=== PATIENT | female | born 1995 | race Two or more races ===

== ENCOUNTER 2016-11-18 20:20 | Inpatient (IN) | payer SELFPAY ==
[2016-11-18] MEDS ORDERED: Sodium Chloride 0.9% 10 ML Syringe FLUSH PRN (23:34)
[2016-11-18] MEDS ORDERED: Oxytocin/Lactated Ringers 10 UNIT/1,000 ML BAG IV SCH (23:45)
[2016-11-19] MEDS: Misoprostol 25 MCG (1/4 of 100 MCG) Tab VAG SCH ×3 (00:06→23:18)
[2016-11-19] MEDS: Lactated Ringers 1,000 ML IV SCH ×6 (04:21→23:16)
[2016-11-19] MEDS ORDERED: fentaNYL 100 MCG/2 ML SDV EPIDUR PRN (07:04)
[2016-11-19] MEDS ORDERED: Ondansetron 4 MG/2 ML SDV IVPUSH PRN (07:04)
[2016-11-19] MEDS ORDERED: ePHEDrine 50 MG/ML SDV IVPUSH PRN (07:04)
--- NOTE | 2016-11-19 07:06 | PCM.PREANE ---
Preanesthetic Assessment - Anesthesia/Transfusion/Family Hx Anesthesia History: No Prior Anesthesia Family History of Anesthesia Reaction: No Transfusion History: No Prior Transfusion(s) Intubation History: Unknown - Review of Systems General: No Symptoms Pulmonary: No Symptoms Cardiovascular: No Symptoms Gastrointestinal: Constipation Neurological: No Symptoms Other: Reports: Easy Bruising - Physical Assessment NPO Status Date: 11/18/16 NPO Status Time: 14:00 Pulse: 82 O2 Sat by Pulse Oximetry: 100 Respiratory Rate: 16 Blood Pressure: 138/86 Temperature: 37 C Vital Signs: Last Vital Signs Temp 37.0 C 11/19/16 00:29 Pulse 82 11/19/16 00:29 Resp 16 11/19/16 00:29 BP 138/86 11/19/16 00:29 Pulse Ox 100 11/19/16 00:29 Height: 1.55 m Weight: 71.486 kg ASA Class: 2 Mental Status: Alert & Oriented x3 Airway Class: Mallampati = 2 Dentition: Reports: Normal Dentition, Caries Thyro-Mental Finger Breadths: 3 Mouth Opening Finger Breadths: 3 ROM/Head Extension: Full Lungs: Clear to Auscultation, Normal Respiratory Effort Cardiovascular: Regular Rate, Regular Rhythm - Lab Values: Laboratory Last Values WBC 13.02 K/mm3 (3.98-10.04) H 11/18/16 23:58 RBC 3.73 M/mm3 (3.98-5.22) L 11/18/16 23:58 Hgb 11.2 gm/L (11.2-15.7) 11/18/16 23:58 Hct 32.9 % (34.1-44.9) L 11/18/16 23:58 MCV 88.2 fl (79.4-94.8) 11/18/16 23:58 MCH 30.0 pg (25.6-32.2) 11/18/16 23:58 MCHC 34.0 g/dl (32.2-35.5) 11/18/16 23:58 RDW Std Deviation 45.3 fL (36.4-46.3) 11/18/16 23:58 Plt Count 238 K/mm3 (182-369) 11/18/16 23:58 MPV 10.4 fl (9.4-12.3) 11/18/16 23:58 Neut % (Auto) 75.0 % (34.0-71.1) H 11/18/16 23:58 Lymph % (Auto) 15.7 % (19.3-51.7) L 11/18/16 23:58 [place] % (Auto) 8.6 % (4.7-12.5) 11/18/16 23:58 Eos % (Auto) 0.4 (0.7-5.8) L 11/18/16 23:58 Baso % (Auto) 0.1 % (0.1-1.2) 11/18/16 23:58 Neut # (Auto) 9.77 K/mm3 (1.56-6.13) H 11/18/16 23:58 Lymph # (Auto) 2.04 K/mm3 (1.18-3.74) 11/18/16 23:58 [place] # (Auto) 1.12 K/mm3 (0.24-0.36) H 11/18/16 23:58 Eos # (Auto) 0.05 K/mm3 (0.04-0.36) 11/18/16 23:58 Baso # (Auto) 0.01 K/mm3 (0.01-0.08) 11/18/16 23:58 Blood Type B NEGATIVE 11/18/16 23:58 Gel Antibody Screen Negative 11/18/16 23:58 Above lab values reviewed and noted. 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 Below) Other OB/BYN History: ASCUS on PAP smear, positive HPV - Infectious Disease History Infectious Disease History: Reports: Chicken Pox - Past Surgical History Musculoskeletal Surgical History: Reports: Other (See Below) Other Musculoskeletal Surgeries/Procedures:: right arm fracture age 5 - SUBSTANCE USE Smoking Status *Q: Never Smoker Recreational Drug Use History: No - CURRENT (IN HOUSE) MEDS Current Meds: Current Medications Lactated Ringer's (Ringers, Lactated) 1,000 mls @ 100 mls/hr IV ASDIRECTED GOLDEN Last Admin: 11/19/16 06:05 Dose: 100 mls/hr Oxytocin/Lactated Ringer's (Pitocin In Lr 10 Units/1,000 Ml) 10 unit in 1,000 mls @ 500 mls/hr IV .CONTINUOUS GOLDEN Oxytocin/Lactated Ringer's (Pitocin In Lr 10 Units/1,000 Ml) 10 unit in 1,000 mls @ 12 mls/hr IV TITRATE GOLDEN; 2 MUNITS/MIN PRN Reason: Protocol Misoprostol (Cytotec) 25 mcg VAG Q3HR GOLDEN Stop: 11/19/16 07:30 Last Admin: 11/19/16 04:03 Dose: 25 mcg Sodium Chloride (Saline Flush) 10 ml FLUSH ASDIRECTED PRN PRN Reason: Keep Vein Open
[2016-11-19] MEDS ORDERED: Bupivacaine/fentaNYL/NS 100 ML Bag EPIDUR SCH (07:15)
--- NOTE | 2016-11-19 08:06 | PCM.LDHP ---
L&D History of Present Illness - General Date of Service: 11/19/16 Admit Problem/Dx: Patient Status Order with Admit Dx/Problem 11/18/16 23:34 Patient Status [ADT] Routine Admission Diagnosis/Problem Admission Diagnosis/Problem Source of Information: Patient History Limitations: Reports: No Limitations - History of Present Illness Introduction:: A 1-year-old CARLIE 11/14/16 and estimated gestational age today of 40 weeks and 5 days presented to labor and delivery late last evening for Cytotec placement she has received 2 Cytotec placements in the vagina and cervix this morning is 2 cm 50% effaced cephalic presentation -1 station amniotomy performed at 0 756 clear fluid will begin Pitocin 1 hour if no significant contractions blood type B negative hemoglobin hematocrit 05/13/1710.5 and 33.1 history of ASCUS Pap with HPV high risk positive we'll need colposcopy at 12 weeks rubella immune serology nonreactive urine culture mixed leon hepatitis B surface antigen and HIV negative Chlamydia negative and GC negative on 08/22/16 hemoglobin hematocrit 10.1 and 30.1 and platelets 345,001 hour OB glucose screen 120 given RhoGAM and GBS negative. 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) Other OB/BYN History: ASCUS on PAP smear, positive HPV - Infectious Disease History Infectious Disease History: Reports: Chicken Pox - Past Surgical History Musculoskeletal Surgical History: Reports: Other (See Below) Other Musculoskeletal Surgeries/Procedures:: right arm fracture age 5 Social & Family History - Tobacco Use Smoking Status *Q: Never Smoker - Caffeine Use Caffeine Use: Reports: Coffee - Recreational Drug Use Recreational Drug Use: No H&P Review of Systems - Review of Systems: Review Of Systems: See Below General: Reports: No Symptoms HEENT: Reports: No Symptoms Pulmonary: Reports: No Symptoms Cardiovascular: Reports: No Symptoms Gastrointestinal: Reports: No Symptoms Genitourinary: Reports: No Symptoms Musculoskeletal: Reports: No Symptoms Skin: Reports: No Symptoms Psychiatric: Reports: No Symptoms Neurological: Reports: No Symptoms Hematologic/Lymphatic: Reports: No Symptoms Immunologic: Reports: No Symptoms L&D Exam - Exam Exam: See Below - Vital Signs Vital Signs: Last Vital Signs Temp 98.6 F 11/19/16 07:06 Pulse 82 11/19/16 07:06 Resp 16 11/19/16 07:06 BP 138/86 11/19/16 07:06 Pulse Ox 100 11/19/16 07:06 Weight: 157 lb 9.6 oz - OB Specific Fundal Height In cm: 38 Contraction Duration (sec): 60 Contraction Frequency (min): 3 Contraction Intensity: Mild to Moderate Movement: Active Heart Tones: Present Heart Tones per Min: 135 Heart Rate (FHR) Variability: Moderate (6-25 bmp) Presentation: Vertex - Young Score Young Score Cervix Position: Posterior Young Score Consistency: Soft Young Score Effacement: 31-50% Young Score Dilation: 3-4 cm Young Score Infant's Station: -1 ,0 Young Score Total: 7 - Exam General: Alert, Oriented HEENT: Conjunctiva Clear, Mucosa Moist & [place] Neck: Supple, Trachea Midline Lungs: Clear to Auscultation, Normal Respiratory Effort Cardiovascular: Regular Rate, Regular Rhythm GI/Abdominal Exam: Normal Bowel Sounds, Soft, Non-Tender, No Organomegaly, No Distention, No Abnormal Bruit, No Mass, Pelvis Stable Rectal Exam: Normal Exam, Normal Rectal Tone Genitourinary: Normal external exam, Normal bimanual exam, Normal speculum exam Back Exam: Normal Inspection, Full Range of Motion Extremities: Normal Inspection, Normal Range of Motion, Non-Tender, No Pedal Edema, Normal Capillary Refill Skin: Warm, Dry, Intact Psychiatric: Alert, Normal Affect, Normal Mood - Patient Data Lab Results Last 24 hrs: Laboratory Results - last 24 hr 11/18/16 11/18/16 Range/Units 23:58 23:58 WBC 13.02 H (3.98-10.04) K/mm3 RBC 3.73 L (3.98-5.22) M/mm3 Hgb 11.2 (11.2-15.7) gm/L Hct 32.9 L (34.1-44.9) % MCV 88.2 (79.4-94.8) fl MCH 30.0 (25.6-32.2) pg MCHC 34.0 (32.2-35.5) g/dl RDW Std Deviation 45.3 (36.4-46.3) fL Plt Count 238 (182-369) K/mm3 MPV 10.4 (9.4-12.3) fl Neut % (Auto) 75.0 H (34.0-71.1) % Lymph % (Auto) 15.7 L (19.3-51.7) % [place] % (Auto) 8.6 (4.7-12.5) % Eos % (Auto) 0.4 L (0.7-5.8) Baso % (Auto) 0.1 (0.1-1.2) % Neut # (Auto) 9.77 H (1.56-6.13) K/mm3 Lymph # (Auto) 2.04 (1.18-3.74) K/mm3 [place] # (Auto) 1.12 H (0.24-0.36) K/mm3 Eos # (Auto) 0.05 (0.04-0.36) K/mm3 Baso # (Auto) 0.01 (0.01-0.08) K/mm3 Blood Type B NEGATIVE Gel Antibody Screen Negative Result Diagrams: 11/18/16 23:58 - Problem List (1) 40 weeks gestation of SNOMED Code(s): 42388218 ICD Code: Z3A.40 - 40 WEEKS GESTATION OF Status: Acute Current Visit: Yes Problem List Initiated/Reviewed/Updated: No Orders Last 24hrs: Active Orders 24 hr Category Date Time Status Patient Status [ADT] Routine ADT 11/18/16 23:34 Active Activity as Tolerated [RC] PFP Care 11/18/16 23:34 Active Communication Order [RC] ASDIRECTED Care 11/18/16 23:34 Active Heart Tones [RC] ASDIRECTED Care 11/18/16 23:35 Active Notify Provider [RC] ASDIRECTED Care 11/19/16 07:04 Active Notify Provider [RC] PFP Care 11/18/16 23:34 Active Notify Provider [RC] PRN Care 11/18/16 23:34 Active Oxygen Therapy [RC] ASDIRECTED Care 11/19/16 07:03 Active Peripheral IV Care [RC] . DIRECTED Care 11/18/16 23:35 Active Pulse Oximetry [RC] ASDIRECTED Care 11/19/16 07:04 Active Vital Signs [RC] PER UNIT ROUTINE Care 11/18/16 23:34 Active Clear Liquid Diet [DIET] Diet 11/19/16 Breakfast Active Bupivacaine/fentaNYL/NS [fentaNYL/Bupivacaine/NS 2 MCG- Med 11/19/16 07:15 Active 0.125% 100 ML] 100 ml EPIDUR ASDIRECTED Lactated Ringers [Ringers, Lactated] 1,000 ml Med 11/18/16 23:45 Active IV ASDIRECTED Ondansetron [Zofran] Med 11/19/16 07:04 Active 4 mg IVPUSH ONETIME PRN Oxytocin/Lactated Ringers [Pitocin in LR 10 Units/1,000 Med 11/18/16 23:45 Active ML] 10 unit in 1,000 ml IV .CONTINUOUS Oxytocin/Lactated Ringers [Pitocin in LR 10 Units/1,000 Med 11/19/16 08:30 Active ML] 10 unit in 1,000 ml IV TITRATE Sodium Chloride 0.9% [Saline Flush] Med 11/18/16 23:34 Active 10 ml FLUSH ASDIRECTED PRN ePHEDrine [ePHEDrine Sulfate] Med 11/19/16 07:04 Active 5 mg IVPUSH ASDIRECTED PRN fentaNYL [Sublimaze] Med 11/19/16 07:04 Active 100 mcg EPIDUR Q3H PRN Electronic Heart Tones Ext w TOCO [WOMSER] Oth 11/18/16 23:34 Ordered Routine Electronic Heart Tones Internal [WOMSER] Per Unit Oth 11/18/16 23:34 Ordered Routine Peripheral IV Insertion Adult [OM.PC] Routine Oth 11/18/16 23:34 Ordered Resuscitation Status Routine Resus Stat 11/18/16 23:34 Ordered Medication Orders Ephedrine Sulfate (Ephedrine Sulfate) 5 mg IVPUSH ASDIRECTED PRN PRN Reason: Hypotension Fentanyl (Sublimaze) 100 mcg EPIDUR Q3H PRN PRN Reason: Pain Fentanyl/Bupivacaine HCl (Fentanyl/Bupivacaine/Ns 2 Mcg-0.125% 100 Ml) 100 ml EPIDUR ASDIRECTED GOLDEN Lactated Ringer's (Ringers, Lactated) 1,000 mls @ 100 mls/hr IV ASDIRECTED GOLDEN Last Admin: 11/19/16 06:05 Dose: 100 mls/hr Infusion: 11/19/16 06:05 Dose: 100 mls/hr Admin: 11/19/16 04:21 Dose: 100 mls/hr Oxytocin/Lactated Ringer's (Pitocin In Lr 10 Units/1,000 Ml) 10 unit in 1,000 mls @ 500 mls/hr IV .CONTINUOUS GOLDEN Oxytocin/Lactated Ringer's (Pitocin In Lr 10 Units/1,000 Ml) 10 unit in 1,000 mls @ 12 mls/hr IV TITRATE GOLDEN; 2 MUNITS/MIN PRN Reason: Protocol Ondansetron HCl (Zofran) 4 mg IVPUSH ONETIME PRN PRN Reason: Nausea/Vomiting Sodium Chloride (Saline Flush) 10 ml FLUSH ASDIRECTED PRN PRN Reason: Keep Vein Open Assessment/Plan Comment:: Plan delivery
[2016-11-19] MEDS ORDERED: Oxytocin/Lactated Ringers 10 UNIT/1,000 ML BAG IV SCH (08:30)
[2016-11-19] MEDS ORDERED: Lidocaine 1% 50 ML MDV ONE (11:04)
[2016-11-19] MEDS: Nalbuphine 20 MG/1 ML Amp IVPUSH ONE ×2 (12:45→23:19)
--- NOTE | 2016-11-19 13:58 | PCM.SN ---
- Free Text/Narrative Note: At 1322 cervix 5-6 cm, 90% effaces, soft, posterior, vtx-1 to 0. Cat I FHR. Discussed possible epidural. Amniotic Fluid Clear.
--- NOTE | 2016-11-19 16:51 | PCM.SN ---
- Free Text/Narrative Note: Cervix 8 cm, 100%, soft, anterior, vertex 0 station, Cat I FHR. Oxytocing at 8 miu/ml
--- NOTE | 2016-11-19 17:53 | PCM.SN ---
- Free Text/Narrative Note: Pelvic examination reveals anterior lip +2 station category 1 heart rates at 10 M international units per minute oxytocin dilute solution containing anticipation for vaginal delivery discussion with family concerning OP presentation and prolonged pushing possible section but at present time anticipate vaginal delivery
[2016-11-19] MEDS ORDERED: Acetaminophen Soln 650 MG/20.3 ML UD Cup PO ONE (18:41)
--- NOTE | 2016-11-19 18:41 | PCM.SN ---
- Free Text/Narrative Note: Cervix complete, to begin pushing. Temp increased to 100.4, blood cultures ordered, also borderline tachycardia. Accelerations and Cat I heart rate.
--- NOTE | 2016-11-19 20:45 | PCM.DEL ---
L & D Note - General Info Date of Service: 11/19/16 Mother's Due Date: 11/14/16 - Delivery Note Labor: Augmented by ARM, Augmented by Oxytocin Cervical Ripening Method: Misoprostil Delivery Outcome: Livebirth (Male liveborn 25/08/89 grams 7 pounds 11.1 ounces FREDY Friday11/19/16 at 2020 hrs. Apgars 8/9) Infant Delivery Method: Spontaneous Vaginal Delivery Infant Delivery Mode: Spontaneous Presentation: Left Occiput Anterior (FREDY) Nuchal Cord: None Prep: Povidone-Iodine (Betadine Anesthesia Type: Epidural (Good relief no pain with laceration repair) Amniotic Fluid Description: Clear Episiotomy Type: None Laceration: 2nd Degree Suture type: Other (Monocryl) Suture size: 3-0 Placenta: Intact, Spontaneous (Spontaneous delivery at 2023 hrs. on 11/19 eccentric cord insertion 3 vessel cord) Cord: 3 Vessels Estimated Blood Loss: 250 Resuscitation Needed: No : Suctioned, Bulb Syringe, Stimulated, Warmed, [place] Used, Warmer Used Provider: Abhay Key Score 1 min: 8 Score 5 min: 9 - Patient Data Vitals - Most Recent: Last Vital Signs Temp 100.8 F H 11/19/16 18:47 Pulse 82 11/19/16 10:32 Resp 16 11/19/16 10:32 BP 138/86 11/19/16 10:32 Pulse Ox 100 11/19/16 10:32 Weight - Most Recent: 157 lb 9.6 oz I&O - Last 24 Hours: Intake & Output 11/19/16 11/19/16 11/19/16 06:59 14:59 22:59 Intake Total 1000 360 800 Balance 1000 360 800 Lab Results Last 24 Hours: Laboratory Results - last 24 hr 11/18/16 11/18/16 Range/Units 23:58 23:58 WBC 13.02 H (3.98-10.04) K/mm3 RBC 3.73 L (3.98-5.22) M/mm3 Hgb 11.2 (11.2-15.7) gm/L Hct 32.9 L (34.1-44.9) % MCV 88.2 (79.4-94.8) fl MCH 30.0 (25.6-32.2) pg MCHC 34.0 (32.2-35.5) g/dl RDW Std Deviation 45.3 (36.4-46.3) fL Plt Count 238 (182-369) K/mm3 MPV 10.4 (9.4-12.3) fl Neut % (Auto) 75.0 H (34.0-71.1) % Lymph % (Auto) 15.7 L (19.3-51.7) % [place] % (Auto) 8.6 (4.7-12.5) % Eos % (Auto) 0.4 L (0.7-5.8) Baso % (Auto) 0.1 (0.1-1.2) % Neut # (Auto) 9.77 H (1.56-6.13) K/mm3 Lymph # (Auto) 2.04 (1.18-3.74) K/mm3 [place] # (Auto) 1.12 H (0.24-0.36) K/mm3 Eos # (Auto) 0.05 (0.04-0.36) K/mm3 Baso # (Auto) 0.01 (0.01-0.08) K/mm3 Blood Type B NEGATIVE Gel Antibody Screen Negative Med Orders - Current: Current Medications Ephedrine Sulfate (Ephedrine Sulfate) 5 mg IVPUSH ASDIRECTED PRN PRN Reason: Hypotension Fentanyl (Sublimaze) 100 mcg EPIDUR Q3H PRN PRN Reason: Pain Last Admin: 11/19/16 14:08 Dose: 100 mcg Fentanyl/Bupivacaine HCl (Fentanyl/Bupivacaine/Ns 2 Mcg-0.125% 100 Ml) 100 ml EPIDUR ASDIRECTED GOLDEN Last Admin: 11/19/16 14:08 Dose: 100 ml Lactated Ringer's (Ringers, Lactated) 1,000 mls @ 100 mls/hr IV ASDIRECTED GOLDEN Last Admin: 11/19/16 18:40 Dose: 100 mls/hr Oxytocin/Lactated Ringer's (Pitocin In Lr 10 Units/1,000 Ml) 10 unit in 1,000 mls @ 500 mls/hr IV .CONTINUOUS GOLDEN Oxytocin/Lactated Ringer's (Pitocin In Lr 10 Units/1,000 Ml) 10 unit in 1,000 mls @ 12 mls/hr IV TITRATE GOLDEN; 2 MUNITS/MIN PRN Reason: Protocol Last Titration: 11/19/16 17:38 Dose: 10 munits/min, 60 mls/hr Ondansetron HCl (Zofran) 4 mg IVPUSH ONETIME PRN PRN Reason: Nausea/Vomiting Sodium Chloride (Saline Flush) 10 ml FLUSH ASDIRECTED PRN PRN Reason: Keep Vein Open Discontinued Medications Acetaminophen (Tylenol) 650 mg PO ONETIME ONE Stop: 11/19/16 18:42 Last Admin: 11/19/16 18:47 Dose: 650 mg Lidocaine HCl (Xylocaine 1%) Confirm Administered Dose 50 ml .ROUTE .STK-MED ONE Stop: 11/19/16 11:05 Misoprostol (Cytotec) 25 mcg VAG Q3HR GOLDEN Stop: 11/19/16 07:30 Last Admin: 11/19/16 04:03 Dose: 25 mcg Nalbuphine HCl (Nubain) 10 mg IVPUSH ONETIME ONE Stop: 11/19/16 12:39 - Problem List & Annotations (1) 40 weeks gestation of SNOMED Code(s): 98001336 Code(s): Z3A.40 - 40 WEEKS GESTATION OF Status: Acute Current Visit: Yes (2) Second degree laceration of perineum, delivered, current hospitalization SNOMED Code(s): 794682088 Code(s): O70.1 - SECOND DEGREE PERINEAL LACERATION DURING DELIVERY Status: Acute Current Visit: Yes - Problem List Review Problem List Initiated/Reviewed/Updated: No - My Orders Last 24 Hours: My Active Orders 11/18/16 23:34 Patient Status [ADT] Routine Activity as Tolerated [RC] PFP Communication Order [RC] ASDIRECTED Notify Provider [RC] PFP Notify Provider [RC] PRN Vital Signs [RC] PER UNIT ROUTINE Sodium Chloride 0.9% [Saline Flush] 10 ml FLUSH ASDIRECTED PRN Electronic Heart Tones Ext w TOCO [WOMSER] Routine Electronic Heart Tones Internal [WOMSER] Per Unit Routine Peripheral IV Insertion Adult [OM.PC] Routine Resuscitation Status Routine 11/18/16 23:35 Heart Tones [RC] ASDIRECTED Peripheral IV Care [RC] . DIRECTED 11/18/16 23:45 Lactated Ringers [Ringers, Lactated] 1,000 ml IV ASDIRECTED Oxytocin/Lactated Ringers [Pitocin in LR 10 Units/1,000 ML] 10 unit in 1,000 ml IV .CONTINUOUS 11/19/16 08:30 Oxytocin/Lactated Ringers [Pitocin in LR 10 Units/1,000 ML] 10 unit in 1,000 ml IV TITRATE 11/19/16 18:53 CULTURE BLOOD [BC] Stat 11/19/16 Breakfast Clear Liquid Diet [DIET] - Plan Plan:: Plan delivery
[2016-11-19] MEDS ORDERED: Witch Hazel Medicated Pads 100/Jar TOP PRN (21:04)
[2016-11-19] MEDS ORDERED: Acetaminophen 325 MG Tab PO PRN (21:04)
[2016-11-19] MEDS ORDERED: Acetaminophen/oxyCODONE 325-5 MG Tab PO PRN (21:04)
[2016-11-19] MEDS ORDERED: Lanolin 100% Cream 7 GM Tube TOP PRN (21:04)
[2016-11-19] MEDS ORDERED: Benzocaine/Menthol 20%-0.5% Spray 56 GM Canister TOP PRN (21:04)
[2016-11-19] MEDS ORDERED: Bupivacaine 0.25% 10 ML SDV ONE (22:22)
[2016-11-19] MEDS: Docusate Sodium 100 MG Cap PO PRN (22:23)
[2016-11-19] MEDS: Ibuprofen 600 MG Tab PO PRN (22:25)
--- NOTE | 2016-11-20 06:55 | PCM.SN ---
- Free Text/Narrative Note: day 1 Afebrile, no heavy vaginal bleeding no leg cramping patient doing well no complaints probably dismiss tomorrow
[2016-11-20] MEDS: Ibuprofen 600 MG Tab PO PRN (13:12)
[2016-11-20] MEDS: Docusate Sodium 100 MG Cap PO PRN (14:33)
--- NOTE | 2016-11-21 06:45 | PCM.DCSUM1 ---
Discharge Summary - Hospital Course Free Text/Narrative:: [facility] LIVE L/D Delivery Note Patient Name: WHITNEY SHAFER Date of : 89 Patient Status: Inpatient Attending Provider: Abhay Key Date: 11/19/16 20:41 Initialization Date: 11/19/16 20:41 L & D Note - General Info Date of Service: 11/19/16 Mother's Due Date: 11/14/16 - Delivery Note Labor: Augmented by ARM, Augmented by Oxytocin Cervical Ripening Method: Misoprostil Delivery Outcome: Livebirth (Male liveborn 25/08/89 grams 7 pounds 11.1 ounces FREDY Friday11/19/16 at 2020 hrs. Apgars 8/9) Delivery Method: Spontaneous Vaginal Delivery Infant Delivery Mode: Spontaneous Presentation: Left Occiput Anterior (FREDY) Nuchal Cord: None Prep: Povidone-Iodine (Betadine Anesthesia Type: Epidural (Good relief no pain with laceration repair) Amniotic Fluid Description: Clear Episiotomy Type: None Laceration: 2nd Degree Suture type: Other (Monocryl) Suture size: 3-0 Placenta: Intact, Spontaneous (Spontaneous delivery at 3 hrs. on 11/19 eccentric cord insertion 3 vessel cord) Cord: 3 Vessels Estimated Blood Loss: 250 Resuscitation Needed: No [place]: Suctioned, Bulb Syringe, Stimulated, Warmed, [place] Used, Warmer Used Provider: Abhay Key Score 1 min: 8 Score 5 min: 9 - Patient Data Vitals - Most Recent: Last Vital Signs Temp 100.8 F H 11/19/16 18:47 Pulse 82 11/19/16 10:32 Resp 16 11/19/16 10:32 BP 138/86 11/19/16 10:32 Pulse Ox 100 11/19/16 10:32 Weight - Most Recent: 157 lb 9.6 oz I&O - Last 24 Hours: Intake & Output 11/19/16 11/19/16 11/19/16 06:59 14:59 22:59 Intake Total 1000 360 800 Balance 1000 360 800 Lab Results Last 24 Hours: Laboratory Results - last 24 hr 11/18/16 11/18/16 Range/Units 23:58 23:58 WBC 13.02 H (3.98-10.04) K/mm3 RBC 3.73 L (3.98-5.22) M/mm3 Hgb 11.2 (11.2-15.7) gm/L Hct 32.9 L (34.1-44.9) % MCV 88.2 (79.4-94.8) fl MCH 30.0 (25.6-32.2) pg MCHC 34.0 (32.2-35.5) g/dl RDW Std Deviation 45.3 (36.4-46.3) fL Plt Count 238 (182-369) K/mm3 MPV 10.4 (9.4-12.3) fl Neut % (Auto) 75.0 H (34.0-71.1) % Lymph % (Auto) 15.7 L (19.3-51.7) % Garvin % (Auto) 8.6 (4.7-12.5) % Eos % (Auto) 0.4 L (0.7-5.8) Baso % (Auto) 0.1 (0.1-1.2) % Neut # (Auto) 9.77 H (1.56-6.13) K/mm3 Lymph # (Auto) 2.04 (1.18-3.74) K/mm3 Garvin # (Auto) 1.12 H (0.24-0.36) K/mm3 Eos # (Auto) 0.05 (0.04-0.36) K/mm3 Baso # (Auto) 0.01 (0.01-0.08) K/mm3 Blood Type B NEGATIVE Gel Antibody Screen Negative Med Orders - Current: Current Medications Ephedrine Sulfate (Ephedrine Sulfate) 5 mg IVPUSH ASDIRECTED PRN PRN Reason: Hypotension Fentanyl (Sublimaze) 100 mcg EPIDUR Q3H PRN PRN Reason: Pain Last Admin: 11/19/16 14:08 Dose: 100 mcg Fentanyl/Bupivacaine HCl (Fentanyl/Bupivacaine/Ns 2 Mcg-0.125% 100 Ml) 100 ml EPIDUR ASDIRECTED GOLDEN Last Admin: 11/19/16 14:08 Dose: 100 ml Lactated Ringer's (Ringers, Lactated) 1,000 mls @ 100 mls/hr IV ASDIRECTED GOLDEN Last Admin: 11/19/16 18:40 Dose: 100 mls/hr Oxytocin/Lactated Ringer's (Pitocin In Lr 10 Units/1,000 Ml) 10 unit in 1,000 mls @ 500 mls/hr IV .CONTINUOUS GOLDEN Oxytocin/Lactated Ringer's (Pitocin In Lr 10 Units/1,000 Ml) 10 unit in 1,000 mls @ 12 mls/hr IV TITRATE GOLDEN; 2 MUNITS/MIN PRN Reason: Protocol Last Titration: 11/19/16 17:38 Dose: 10 munits/min, 60 mls/hr Ondansetron HCl (Zofran) 4 mg IVPUSH ONETIME PRN PRN Reason: Nausea/Vomiting Sodium Chloride (Saline Flush) 10 ml FLUSH ASDIRECTED PRN PRN Reason: Keep Vein Open Discontinued Medications Acetaminophen (Tylenol) 650 mg PO ONETIME ONE Stop: 11/19/16 18:42 Last Admin: 11/19/16 18:47 Dose: 650 mg Lidocaine HCl (Xylocaine 1%) Confirm Administered Dose 50 ml .ROUTE .STK-MED ONE Stop: 11/19/16 11:05 Misoprostol (Cytotec) 25 mcg VAG Q3HR GOLDEN Stop: 11/19/16 07:30 Last Admin: 11/19/16 04:03 Dose: 25 mcg Nalbuphine HCl (Nubain) 10 mg IVPUSH ONETIME ONE Stop: 11/19/16 12:39 - Problem List & Annotations (1) 40 weeks gestation of SNOMED Code(s): 09243995 Code(s): Z3A.40 - 40 WEEKS GESTATION OF Status: Acute Current Visit: Yes (2) Second degree laceration of perineum, delivered, current hospitalization SNOMED Code(s): 577608450 Code(s): O70.1 - SECOND DEGREE PERINEAL LACERATION DURING DELIVERY Status: Acute Current Visit: Yes - Problem List Review Problem List Initiated/Reviewed/Updated: No - My Orders Last 24 Hours: My Active Orders 11/18/16 23:34 Patient Status [ADT] Routine Activity as Tolerated [RC] PFP Communication Order [RC] ASDIRECTED Notify Provider [RC] PFP Notify Provider [RC] PRN Vital Signs [RC] PER UNIT ROUTINE Sodium Chloride 0.9% [Saline Flush] 10 ml FLUSH ASDIRECTED PRN Electronic Heart Tones Ext w TOCO [WOMSER] Routine Electronic Heart Tones Internal [WOMSER] Per Unit Routine Peripheral IV Insertion Adult [OM.PC] Routine Resuscitation Status Routine 11/18/16 23:35 Heart Tones [RC] ASDIRECTED Peripheral IV Care [RC] . DIRECTED 11/18/16 23:45 Lactated Ringers [Ringers, Lactated] 1,000 ml IV ASDIRECTED Oxytocin/Lactated Ringers [Pitocin in LR 10 Units/1,000 ML] 10 unit in 1,000 ml IV .CONTINUOUS 11/19/16 08:30 Oxytocin/Lactated Ringers [Pitocin in LR 10 Units/1,000 ML] 10 unit in 1,000 ml IV TITRATE 11/19/16 18:53 CULTURE BLOOD [BC] Stat 11/19/16 Breakfast Clear Liquid Diet [DIET] - Plan Plan:: Plan delivery HPI Initial Comments: [facility] LIVE L/D Delivery Note Patient Name: WHITNEY SHAFER Date of : 89 Patient Status: Inpatient Attending Provider: Abhay Key Date: 11/19/16 20:41 Initialization Date: 11/19/16 20:41 L & D Note - General Info Date of Service: 11/19/16 Mother's Due Date: 11/14/16 - Delivery Note Labor: Augmented by ARM, Augmented by Oxytocin Cervical Ripening Method: Misoprostil Delivery Outcome: Livebirth (Male liveborn 30 grams 7 pounds 11.1 ounces FREDY Friday11/19/16 at 2020 hrs. Apgars 8/9) Infant Delivery Method: Spontaneous Vaginal Delivery Infant Delivery Mode: Spontaneous Presentation: Left Occiput Anterior (FREDY) Nuchal Cord: None Prep: Povidone-Iodine (Betadine Anesthesia Type: Epidural (Good relief no pain with laceration repair) Amniotic Fluid Description: Clear Episiotomy Type: None Laceration: 2nd Degree Suture type: Other (Monocryl) Suture size: 3-0 Placenta: Intact, Spontaneous (Spontaneous delivery at 3 hrs. on 11/19 eccentric cord insertion 3 vessel cord) Cord: 3 Vessels Estimated Blood Loss: 250 Resuscitation Needed: No : Suctioned, Bulb Syringe, Stimulated, Warmed, [place] Used, Warmer Used Provider: Abhay Key Score 1 min: 8 Score 5 min: 9 - Patient Data Vitals - Most Recent: Last Vital Signs Temp 100.8 F H 11/19/16 18:47 Pulse 82 11/19/16 10:32 Resp 16 11/19/16 10:32 BP 138/86 11/19/16 10:32 Pulse Ox 100 11/19/16 10:32 Weight - Most Recent: 157 lb 9.6 oz I&O - Last 24 Hours: Intake & Output 11/19/16 11/19/16 11/19/16 06:59 14:59 22:59 Intake Total 1000 360 800 Balance 1000 360 800 Lab Results Last 24 Hours: Laboratory Results - last 24 hr 11/18/16 11/18/16 Range/Units 23:58 23:58 WBC 13.02 H (3.98-10.04) K/mm3 RBC 3.73 L (3.98-5.22) M/mm3 Hgb 11.2 (11.2-15.7) gm/L Hct 32.9 L (34.1-44.9) % MCV 88.2 (79.4-94.8) fl MCH 30.0 (25.6-32.2) pg MCHC 34.0 (32.2-35.5) g/dl RDW Std Deviation 45.3 (36.4-46.3) fL Plt Count 238 (182-369) K/mm3 MPV 10.4 (9.4-12.3) fl Neut % (Auto) 75.0 H (34.0-71.1) % Lymph % (Auto) 15.7 L (19.3-51.7) % Garvin % (Auto) 8.6 (4.7-12.5) % Eos % (Auto) 0.4 L (0.7-5.8) Baso % (Auto) 0.1 (0.1-1.2) % Neut # (Auto) 9.77 H (1.56-6.13) K/mm3 Lymph # (Auto) 2.04 (1.18-3.74) K/mm3 [place]vin # (Auto) 1.12 H (0.24-0.36) K/mm3 Eos # (Auto) 0.05 (0.04-0.36) K/mm3 Baso # (Auto) 0.01 (0.01-0.08) K/mm3 Blood Type B NEGATIVE Gel Antibody Screen Negative Med Orders - Current: Current Medications Ephedrine Sulfate (Ephedrine Sulfate) 5 mg IVPUSH ASDIRECTED PRN PRN Reason: Hypotension Fentanyl (Sublimaze) 100 mcg EPIDUR Q3H PRN PRN Reason: Pain Last Admin: 11/19/16 14:08 Dose: 100 mcg Fentanyl/Bupivacaine HCl (Fentanyl/Bupivacaine/Ns 2 Mcg-0.125% 100 Ml) 100 ml EPIDUR ASDIRECTED GOLDEN Last Admin: 11/19/16 14:08 Dose: 100 ml Lactated Ringer's (Ringers, Lactated) 1,000 mls @ 100 mls/hr IV ASDIRECTED GOLDEN Last Admin: 11/19/16 18:40 Dose: 100 mls/hr Oxytocin/Lactated Ringer's (Pitocin In Lr 10 Units/1,000 Ml) 10 unit in 1,000 mls @ 500 mls/hr IV .CONTINUOUS GOLDEN Oxytocin/Lactated Ringer's (Pitocin In Lr 10 Units/1,000 Ml) 10 unit in 1,000 mls @ 12 mls/hr IV TITRATE GOLDEN; 2 MUNITS/MIN PRN Reason: Protocol Last Titration: 11/19/16 17:38 Dose: 10 munits/min, 60 mls/hr Ondansetron HCl (Zofran) 4 mg IVPUSH ONETIME PRN PRN Reason: Nausea/Vomiting Sodium Chloride (Saline Flush) 10 ml FLUSH ASDIRECTED PRN PRN Reason: Keep Vein Open Discontinued Medications Acetaminophen (Tylenol) 650 mg PO ONETIME ONE Stop: 11/19/16 18:42 Last Admin: 11/19/16 18:47 Dose: 650 mg Lidocaine HCl (Xylocaine 1%) Confirm Administered Dose 50 ml .ROUTE .STK-MED ONE Stop: 11/19/16 11:05 Misoprostol (Cytotec) 25 mcg VAG Q3HR GOLDEN Stop: 11/19/16 07:30 Last Admin: 11/19/16 04:03 Dose: 25 mcg Nalbuphine HCl (Nubain) 10 mg IVPUSH ONETIME ONE Stop: 11/19/16 12:39 - Problem List & Annotations (1) 40 weeks gestation of SNOMED Code(s): 61235352 Code(s): Z3A.40 - 40 WEEKS GESTATION OF Status: Acute Current Visit: Yes (2) Second degree laceration of perineum, delivered, current hospitalization SNOMED Code(s): 553812835 Code(s): O70.1 - SECOND DEGREE PERINEAL LACERATION DURING DELIVERY Status: Acute Current Visit: Yes - Problem List Review Problem List Initiated/Reviewed/Updated: No - My Orders Last 24 Hours: My Active Orders 11/18/16 23:34 Patient Status [ADT] Routine Activity as Tolerated [RC] PFP Communication Order [RC] ASDIRECTED Notify Provider [RC] PFP Notify Provider [RC] PRN Vital Signs [RC] PER UNIT ROUTINE Sodium Chloride 0.9% [Saline Flush] 10 ml FLUSH ASDIRECTED PRN Electronic Heart Tones Ext w TOCO [WOMSER] Routine Electronic Heart Tones Internal [WOMSER] Per Unit Routine Peripheral IV Insertion Adult [OM.PC] Routine Resuscitation Status Routine 11/18/16 23:35 Heart Tones [RC] ASDIRECTED Peripheral IV Care [RC] . DIRECTED 11/18/16 23:45 Lactated Ringers [Ringers, Lactated] 1,000 ml IV ASDIRECTED Oxytocin/Lactated Ringers [Pitocin in LR 10 Units/1,000 ML] 10 unit in 1,000 ml IV .CONTINUOUS 11/19/16 08:30 Oxytocin/Lactated Ringers [Pitocin in LR 10 Units/1,000 ML] 10 unit in 1,000 ml IV TITRATE 11/19/16 18:53 CULTURE BLOOD [BC] Stat 11/19/16 Breakfast Clear Liquid Diet [DIET] - Plan Plan:: Plan delivery Brief History: [facility] LIVE . L/D Delivery Note. Patient Name: WHITNEY SHAFER DMedical Record Number: [id number]. Date of : [birth year]Patient Status: Inpatient. Attending Provider: Abhay Key Number: [id number]. Date: 11/19/16 20:41Initialization Date: 11/19/16 20:41. L & D Note. - General Info. Date of Service: 11/19/16. Mother's Due Date: . - Delivery Note. Labor: Augmented by ARM, Augmented by Oxytocin. Cervical Ripening Method: Misoprostil. Delivery Outcome: Livebirth (Male liveborn 25/08/89 grams 7 pounds 11.1 ounces FREDY Friday11/19/16 at 2020 hrs. Apgars 8/9). Infant Delivery Method: Spontaneous Vaginal Delivery. Delivery Mode: Spontaneous. Presentation: Left Occiput Anterior (FREDY). Nuchal Cord: None. Prep: Povidone-Iodine (Betadine. Anesthesia Type: Epidural (Good relief no pain with laceration repair). Amniotic Fluid Description: Clear. Episiotomy Type: None. Laceration: 2nd Degree. Suture type: Other ( Monocryl). Suture size: 3-0. Placenta: Intact, Spontaneous (Spontaneous delivery at 2023 hrs. on Friday11/19/16 eccentric cord insertion 3 vessel cord) . Cord: 3 Vessels. Estimated Blood Loss: 250. Resuscitation Needed: No. [place]: Suctioned, Bulb Syringe, Stimulated, Warmed, [place] Used, Warmer Used. Provider: Abhay Key. Score 1 min: 8. Score 5 min: 9. - Patient Data. Vitals - Most Recent: Last Vital Signs. Temp 100.8 F H 11/19/16 18:47. Pulse 82 11/19/16 10:32. Resp 16 11/19/16 10: 32. BP 138/86 11/19/16 10:32. Pulse Ox 100 11/19/16 10:32. Weight - Most Recent: 157 lb 9.6 oz. I&O - Last 24 Hours: Intake & Output. 11/19/1706/25/ . 06:5914:5922:59. Intake [id number]. [id number]. Lab Results Last 24 Hours: Laboratory Results - last 24 hr. 11/18/1706/24/17Range/ Units. 23:5823:58. WBC 13.02 H (3.98-10.04) K/mm3. RBC 3.73 L (3.98-5.22) M /mm3. Hgb 11.2 (11.2-15.7) gm/L. Hct 32.9 L (34.1-44.9) %. MCV 88.2 (79.4- 94.8) fl. MCH 30.0 (25.6-32.2) pg. MCHC 34.0 (32.2-35.5) g/dl. RDW Std Deviation 45.3 (36.4-46.3) fL. Plt Count 238 (182-369) K/mm3. MPV 10.4 (9.4- 12.3) fl. Neut % (Auto) 75.0 H (34.0-71.1) %. Lymph % (Auto) 15.7 L (19.3- 51.7) %. Garvin % (Auto) 8.6 (4.7-12.5) %. Eos % (Auto) 0.4 L (0.7-5.8). Baso % (Auto) 0.1 (0.1-1.2) %. Neut # (Auto) 9.77 H (1.56-6.13) K/mm3. Lymph # (Auto) 2.04 (1.18-3.74) K/mm3. [place] # (Auto) 1.12 H (0.24-0.36) K/ mm3. Eos # (Auto) 0.05 (0.04-0.36) K/mm3. Baso # (Auto) 0.01 (0.01-0.08) K/ mm3. Blood Type B NEGATIVE. Gel Antibody Screen Negative. Med Orders - Current: Current Medications. Ephedrine Sulfate (Ephedrine Sulfate) 5 mg IVPUSH ASDIRECTED PRN. PRN Reason: Hypotension. Fentanyl (Sublimaze) 100 mcg EPIDUR Q3H PRN. PRN Reason: Pain. Last Admin: 11/19/16 14:08 Dose: 100 mcg. Fentanyl/Bupivacaine HCl (Fentanyl/Bupivacaine/Ns 2 Mcg-0.125% 100 Ml) 100 ml EPIDUR ASDIRECTED GOLDEN. Last Admin: 11/19/16 14:08 Dose: 100 ml. Lactated Ringer's (Ringers, Lactated) 1,000 mls @ 100 mls/hr IV ASDIRECTED GOLDEN. Last Admin: 11/19/16 18:40 Dose: 100 mls/hr. Oxytocin/Lactated Ringer's (Pitocin In Lr 10 Units/1,000 Ml) 10 unit in 1,000 mls @ 500 mls/hr IV .CONTINUOUS GOLDEN. Oxytocin/Lactated Ringer's (Pitocin In Lr 10 Units/1,000 Ml) 10 unit in 1, 000 mls @ 12 mls/hr IV TITRATE GOLDEN; 2 MUNITS/MIN. PRN Reason: Protocol. Last Titration: 11/19/16 17:38 Dose: 10 munits/min, 60 mls/hr. Ondansetron HCl ( Zofran) 4 mg IVPUSH ONETIME PRN. PRN Reason: Nausea/Vomiting. Sodium Chloride (Saline Flush) 10 ml FLUSH ASDIRECTED PRN. PRN Reason: Keep Vein Open. Discontinued Medications. Acetaminophen (Tylenol) 650 mg PO ONETIME ONE. Stop: 11/19/16 18:42. Last Admin: 11/19/16 18:47 Dose: 650 mg. Lidocaine HCl (Xylocaine 1%) Confirm Administered Dose 50 ml .ROUTE .STK-MED ONE. Stop: 11/19/16 11:05. Misoprostol (Cytotec) 25 mcg VAG Q3HR GOLDEN. Stop: 11/19/16 07:30. Last Admin: 11/19/16 04:03 Dose: 25 mcg. Nalbuphine HCl ( Nubain) 10 mg IVPUSH ONETIME ONE. Stop: 11/19/16 12:39. - Problem List & Annotations. (1) 40 weeks gestation of . SNOMED Code(s): 64507438. Code(s): Z3A.40 - 40 WEEKS GESTATION OF Status: Acute Current Visit: Yes. (2) Second degree laceration of perineum, delivered, current hospitalization. SNOMED Code(s): 803539433. Code(s): O70.1 - SECOND DEGREE PERINEAL LACERATION DURING DELIVERY Status: Acute Current Visit: Yes. - Problem List Review. Problem List Initiated/Reviewed/Updated: No. - My Orders. Last 24 Hours: My Active Orders. 11/18/16 23:34. Patient Status [ADT ] Routine. Activity as Tolerated [RC] PFP. Communication Order [RC] ASDIRECTED. Notify Provider [RC] PFP. Notify Provider [RC] PRN. Vital Signs [ RC] PER UNIT ROUTINE. Sodium Chloride 0.9% [Saline Flush] 10 ml FLUSH ASDIRECTED PRN. Electronic Heart Tones Ext w TOCO [WOMSER] Routine. Electronic Heart Tones Internal [WOMSER] Per Unit Routine. Peripheral IV Insertion Adult [OM.PC] Routine. Resuscitation Status Routine. 11/18/16 23: 35. Heart Tones [RC] ASDIRECTED. Peripheral IV Care [RC] . DIRECTED. 11/18/16 23:45. Lactated Ringers [Ringers, Lactated] 1,000 ml IV ASDIRECTED. Oxytocin/Lactated Ringers [Pitocin in LR 10 Units/1,000 ML] 10 unit in 1,000 ml IV .CONTINUOUS. 11/19/16 08:30. Oxytocin/Lactated Ringers [Pitocin in LR 10 Units/1,000 ML] 10 unit in 1,000 ml IV TITRATE. 11/19/16 18:53. CULTURE BLOOD [BC] Stat. 11/19/16 Breakfast. Clear Liquid Diet [DIET]. - Plan. Plan:: Plan delivery - Discharge Data Discharge Date: 11/21/16 Discharge Disposition: Home, Self-Care 01 Condition: Good - Discharge Diagnosis/Problem(s) (1) 40 weeks gestation of SNOMED Code(s): 05716614 ICD Code: Z3A.40 - 40 WEEKS GESTATION OF Status: Acute Current Visit: Yes (2) Second degree laceration of perineum, delivered, current hospitalization SNOMED Code(s): 194342204 ICD Code: O70.1 - SECOND DEGREE PERINEAL LACERATION DURING DELIVERY Status : Acute Current Visit: Yes - Patient Summary/Data Complications: none Consults: none Hospital Course: uneventful - Patient Instructions Diet: Heart Healthy Diet Driving: Do Not Drive (x48 hrs) Showering/Bathing: May Shower Notify Provider of: Fever, Increased Pain, Swelling and Redness, Drainage, Nausea and/or Vomiting - Discharge Plan Home Medications: Home Meds Acetaminophen [Tylenol] 650 mg PO Q6H PRN #0 tablet 11/21/16 [Rx] Benzocaine/Menthol [Dermoplast Pain Relief [place]] 1 spray TOP ASDIRECTED PRN #0 canister 11/21/16 [Rx] Docusate Sodium [Colace] 100 mg PO BID PRN #0 cap 11/21/16 [Rx] Ibuprofen [IJD: Ibuprofen] 600 mg PO Q6H PRN #0 tablet 11/21/16 [Rx] Shruti Lindsay [Tucks] 1 pad TOP ASDIRECTED PRN #0 pad 11/21/16 [Rx] Referrals: Abhay Key MD [Primary Care Provider] - (6 weeks) - Discharge Summary/Plan Comment DC Time >30 min.: No - Patient Data Vitals - Most Recent: Last Vital Signs Temp 98.2 F 11/20/16 19:51 Pulse 84 11/20/16 19:51 Resp 16 11/20/16 19:51 BP 118/81 11/20/16 19:51 Pulse Ox 99 11/20/16 19:51 Weight - Most Recent: 157 lb 9.6 oz I&O - Last 24 hours: Intake & Output 11/20/16 11/20/16 11/21/16 14:59 22:59 06:59 Intake Total 1 240 Balance 1 240 Lab Results - Last 24 hrs: Laboratory Results - last 24 hr 11/20/16 Range/Units 04:35 Blood Type B NEGATIVE Gel Antibody Screen Negative Screen 0 ros/5 flds - neg RhIG Candidate? Yes Rhogam Indicated Yes, baby rh pos H PANFILO Results - Last 24 hrs: Microbiology 11/19/16 18:53 Aerobic Blood Culture - Preliminary Blood NO GROWTH AFTER 1 DAY Anaerobic Blood Culture - Preliminary NO GROWTH AFTER 1 DAY Med Orders - Current: Current Medications Acetaminophen (Tylenol) 650 mg PO Q4H PRN PRN Reason: mild pain or fever Benzocaine/Menthol (Dermoplast Pain Relief [place]) 0 gm TOP ASDIRECTED PRN PRN Reason: Perineal Comfort Measure Last Admin: 11/19/16 22:22 Dose: 1 canister Docusate Sodium (Colace) 100 mg PO BID PRN PRN Reason: Constipation Last Admin: 11/20/16 14:33 Dose: 100 mg Emollient Ointment (Lansinoh Hpa) 0 gm TOP ASDIRECTED PRN PRN Reason: Sore Nipples Ibuprofen (Motrin) 600 mg PO Q4H PRN PRN Reason: Mild pain or fever Last Admin: 11/20/16 13:12 Dose: 600 mg Oxycodone/Acetaminophen (Percocet 325-5 Mg) 1 tab PO Q4H PRN PRN Reason: Pain (moderate 4-6) Witch Angélica (Tucks) 1 pad TOP ASDIRECTED PRN PRN Reason: Hemorrhoid pain Last Admin: 11/19/16 22:22 Dose: 1 tub Discontinued Medications Acetaminophen (Tylenol) 650 mg PO ONETIME ONE Stop: 11/19/16 18:42 Last Admin: 11/19/16 18:47 Dose: 650 mg Ephedrine Sulfate (Ephedrine Sulfate) 5 mg IVPUSH ASDIRECTED PRN PRN Reason: Hypotension Fentanyl (Sublimaze) 100 mcg EPIDUR Q3H PRN PRN Reason: Pain Last Admin: 11/19/16 14:08 Dose: 100 mcg Fentanyl/Bupivacaine HCl (Fentanyl/Bupivacaine/Ns 2 Mcg-0.125% 100 Ml) 100 ml EPIDUR ASDIRECTED GOLDEN Last Admin: 11/19/16 14:08 Dose: 100 ml Lactated Ringer's (Ringers, Lactated) 1,000 mls @ 100 mls/hr IV ASDIRECTED GOLDEN Last Admin: 11/19/16 23:16 Dose: 100 mls/hr Oxytocin/Lactated Ringer's (Pitocin In Lr 10 Units/1,000 Ml) 10 unit in 1,000 mls @ 500 mls/hr IV .CONTINUOUS GOLDEN Oxytocin/Lactated Ringer's (Pitocin In Lr 10 Units/1,000 Ml) 10 unit in 1,000 mls @ 12 mls/hr IV TITRATE GOLDEN; 2 MUNITS/MIN PRN Reason: Protocol Last Titration: 11/19/16 21:30 Dose: Infused Lidocaine HCl (Xylocaine 1%) Confirm Administered Dose 50 ml .ROUTE .STK-MED ONE Stop: 11/19/16 11:05 Last Admin: 11/19/16 23:19 Dose: Not Given Misoprostol (Cytotec) 25 mcg VAG Q3HR GOLDEN Stop: 11/19/16 07:30 Last Admin: 11/19/16 23:18 Dose: Not Given Nalbuphine HCl (Nubain) 10 mg IVPUSH ONETIME ONE Stop: 11/19/16 12:39 Last Admin: 11/19/16 23:19 Dose: Not Given Ondansetron HCl (Zofran) 4 mg IVPUSH ONETIME PRN PRN Reason: Nausea/Vomiting Sodium Chloride (Saline Flush) 10 ml FLUSH ASDIRECTED PRN PRN Reason: Keep Vein Open *Q Meaningful Use (DIS) - VTE *Q VTE Criteria *Q: - Stroke *Q Stroke Criteria *Q: - AMI *Q AMI Criteria *Q:
[2016-11-21] MEDS: Ibuprofen 600 MG Tab PO PRN (15:32)
[2016-11-21] MEDS: Docusate Sodium 100 MG Cap PO PRN (15:32)
[2016-11-21 21:14] VITALS: BP 121/73
== END 2016-11-21 23:00 | disposition home or self-care (01) | DRG 775 ==
LOC: JD.OB 20:20 → OBSVTOIN 11-19 20:20 → JD.OB 11-19 20:20
PROVIDERS: ADMIT Obstetrics & Gynecology; ATTEND Obstetrics & Gynecology
PROC: 10E0XZZ Delivery of Products of Conception, External Approach (ICD-10-PCS; principal; 2016-11-19)
PROC: 0KQM0ZZ Repair Perineum Muscle, Open Approach (ICD-10-PCS; 2016-11-19)
PROC: 3E0P7GC Introduction of Other Therapeutic Substance into Female Reproductive, Via Natural or Artificial Opening (ICD-10-PCS; 2016-11-19)
PROC: 10907ZC Drainage of Amniotic Fluid, Therapeutic from Products of Conception, Via Natural or Artificial Opening (ICD-10-PCS; 2016-11-19)
DX: O70.1 Second degree perineal laceration during delivery (principal); Z37.0 Single live birth; Z3A.40 40 weeks gestation of pregnancy
CPT/HCPCS: 01967; 36415; 85025; 85461; 86850; 86900; 86901; 87040; A9270-GY; J2590; J2790; J3010; J7120

== ENCOUNTER 2018-07-25 22:32 | Emergency (ER) | payer SELFPAY ==
[2018-07-25 22:48] VITALS: BP 102/74
--- NOTE | 2018-07-26 01:33 | EDM.PDOC ---
ED HPI GENERAL MEDICAL PROBLEM - General Chief Complaint: Back Pain or Injury Stated Complaint: 3wks pg back pain Time Seen by Provider: 07/26/18 00:50 Source of Information: Reports: Patient, Family (Mother), RN Notes Reviewed History Limitations: Reports: No Limitations - History of Present Illness INITIAL COMMENTS - FREE TEXT/NARRATIVE: The patient states that she was seen by her PCP in the clinic this past Friday, , for symptoms of UTI including lower abdominal pain, left side more than the right, low back pain, dysuria, urinary urgency, urinary frequency, and gross hematuria. Medical records indicate that the urinalysis showed 2+ leukocyte esterase with 10-20 WBCs, was nitrate negative, but had moderate bacteria, and 0-5 epithelial cells, all consistent UTI. A serum hCG was slightly positive at 16. The patient was started on oral Keflex and vitamins. The patient now presents to the ED stating that her urinary symptoms have resolved, but her lower back pain has increased - she indicates her coccyx. She reports occasional left pelvic pain. Medical records indicate that the patient had a repeat serum hCG performed yesterday, 07/24/2018, that was slightly higher at 22. With this current , the patient is L1. Her LMP was 06/27/2018. The urine culture is growing Escherichia coli resistant to Unasyn, Zosyn, Ancef , and Bactrim, but susceptible to second and third generation cephalosporins, fluoroquinolones, and nitrofurantoin. The patient's PCP is Mariella Wayne. Her interactive art director is Dr. Key. 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: , Other (See Below) (ASCUS on PAP smear, positive HPV) : 2 Para: 1 - Infectious Disease History Infectious Disease History: Reports: Chicken Pox, Human Papilloma Virus (HPV) - Past Surgical History Musculoskeletal Surgical History: Reports: Other (See Below) Other Musculoskeletal Surgeries/Procedures:: right arm fracture age 5 Social & Family History - Family History Family Medical History: Noncontributory - Tobacco Use Smoking Status *Q: Never Smoker - Caffeine Use Caffeine Use: Reports: Coffee - Alcohol Use Alcohol Use History: No - Recreational Drug Use Recreational Drug Use: No - Living Situation & Occupation Living situation: Reports: , with Spouse, with Family (1 child) Occupation: Unemployed ED ROS GENERAL - Review of Systems Review Of Systems: ROS reveals no pertinent complaints other than HPI. ED EXAM, RENAL/ - Physical Exam Exam: See Below Exam Limited By: No Limitations General Appearance: Alert, WD/WN, No Apparent Distress Eye Exam: Bilateral Eye: EOMI, Normal Inspection Ears: Normal External Exam, Hearing Grossly Normal Nose: Normal Inspection Throat/Mouth: Normal Inspection, Normal Lips, Normal Voice, No Airway Compromise Head: Atraumatic, Normocephalic Neck: Normal Inspection, Full Range of Motion Respiratory/Chest: No Respiratory Distress, Lungs Clear, Normal Breath Sounds, No Accessory Muscle Use Cardiovascular: Normal Peripheral Pulses, Regular Rate, Rhythm, No Edema, No Gallop, No JVD, No Murmur, No Rub GI/Abdominal: Normal Bowel Sounds, Soft, Non-Tender (including lower abdominal/ pelvic palpation), No Organomegaly, No Distention, No Abnormal Bruit, No Mass (Female) Exam: Deferred Rectal (Female) Exam: Deferred Back Exam: Normal Inspection, Full Range of Motion. No: CVA Tenderness (L), CVA Tenderness (R) Extremities: Normal Inspection, Normal Range of Motion, No Pedal Edema, Normal Capillary Refill Neurological: Alert, Oriented, Normal Cognition, No Motor/Sensory Deficits Psychiatric: Normal Affect Skin Exam: Warm, Dry, Intact, Normal Color, No Rash Course - Vital Signs Last Recorded V/S: Last Vital Signs Temp 37.2 C 07/25/18 22:44 Pulse 99 07/25/18 22:44 Resp 18 07/25/18 22:44 BP 102/74 07/25/18 22:44 Pulse Ox 95 07/25/18 22:44 - Orders/Labs/Meds Labs: Laboratory Tests 07/26/18 Range/Units 01:10 Urine Color Yellow (Yellow) Urine Appearance Clear (Clear) Urine pH 6.0 (5.0-8.0) Ur Specific [place] 1.020 (1.005-1.030) Urine Protein Negative (Negative) Urine Glucose (UA) Negative (Negative) Urine Ketones Negative (Negative) Urine Occult Blood Negative (Negative) Urine Nitrite Negative (Negative) Urine Bilirubin Negative (Negative) Urine Urobilinogen 0.2 (0.2-1.0) Ur Leukocyte Esterase Negative (Negative) Urine RBC 0-5 (0-5) /hpf Urine WBC 0-5 (0-5) /hpf Ur Epithelial Cells Not Reportable Ur Squamous Epith Cells 0-5 (0-5) /hpf Urine Bacteria Few (FEW) /hpf Urine Mucus Few (FEW) /hpf - Re-Assessments/Exams Free Text/Narrative Re-Assessment/Exam: 07/26/18 01:30 The urine culture from 07/22/2018 is growing Escherichia coli resistant to Ancef , Unasyn, Zosyn, and Bactrim, but susceptible to second and third generation cephalosporins, fluoroquinolones, and nitrofurantoin. If the patient's urinalysis tonight looks clean, then the Keflex that she is on is likely effective, and she can remain on it, however, if it still shows signs of a UTI, then she would be better off switching to a third generation cephalosporin. The patient's hCG was only 16 on 07/22/2018, and 22 on 07/24/2018. This is consistent with either a very early , under one week, or an ectopic , however, the patient is not showing any signs of an ectopic at this time, therefore an emergency ultrasound to evaluate for such is not indicated. 07/26/18 02:06 The patient's urinalysis is completely normal, indicating that the Keflex that she is on is effective in treating her UTI. I therefore recommended that she continue to take it as prescribed. She can follow-up with Dr. Key as needed. Departure - Departure Time of Disposition: 02:07 Disposition: Home, Self-Care 01 Condition: Good Clinical Impression: Low back pain, Early stage of - Discharge Information *PRESCRIPTION DRUG MONITORING PROGRAM REVIEWED*: Not Applicable *COPY OF PRESCRIPTION DRUG MONITORING REPORT IN PATIENT HORTENCIA: Not Applicable Referrals: Abhay Key MD [Primary Care Provider] - Mariella Wayne NP [Nurse Practitioner] - Forms: ED Department Discharge Additional Instructions: You were seen in the emergency room for continued low back pain after being diagnosed with a UTI on 07/22/2018. Workup in the ER included a repeat urinalysis, which returned completely normal , indicating that the Keflex that you are on is effective in treating your UTI. We recommend that you continue to take the Keflex as prescribed. Stay adequately hydrated. As discussed, your urine hCG ( test) was very low on 07/22/2018 and 07/24. This indicates either very early , or neck topic , however, you have no physical signs or symptoms to suggest an ectopic . Follow-up with your OB, Dr. Key, as needed. If any other problems, please do not hesitate to return to the ER.
== END 2018-07-26 02:15 | disposition home or self-care (01) ==
LOC: JD.ED 22:32
DX: O99.89 Other specified diseases and conditions complicating pregnancy, childbirth and the puerperium (principal); M54.5 Low back pain; Z3A.01 Less than 8 weeks gestation of pregnancy
CPT/HCPCS: 81001; 99282; 99284

== ENCOUNTER 2018-09-14 18:22 | Emergency (ER) | payer SELFPAY ==
[2018-09-14 18:35] VITALS: BP 114/74
[2018-09-14] MEDS ORDERED: Haloperidol Lactate 5 MG/ML SDV IM ONE (19:09)
[2018-09-14] MEDS ORDERED: diphenhydrAMINE 50 MG/ML SDV IM ONE (19:09)
[2018-09-14] MEDS ORDERED: Ondansetron 4 MG Tab.DIS PO ONE (19:10)
--- NOTE | 2018-09-14 19:16 | EDM.PDOC ---
ED HPI GENERAL MEDICAL PROBLEM - General Chief Complaint: Headache Stated Complaint: HEADACHE Time Seen by Provider: 09/14/18 19:11 Source of Information: Reports: Patient History Limitations: Reports: No Limitations - History of Present Illness INITIAL COMMENTS - FREE TEXT/NARRATIVE: Patient is a 23-year-old female presents ED complaining of a severe headache that came on gradually. Patient states that at noon today the headache came on gradually and has progressed over the course of the past few hours. States was unilateral with some photosensitivity to the light/nose that has progressed to the frontal aspect and radiates over the top of her head. There is a throbbing and tension-like component to it. She has been under a lot more stress recently with having a miscarriage approximately one month ago. Just recently had her first period since the miscarriage. This started 3 days ago. She's had headaches like this in the past usually brought on by stress. There's been no recent fever, trauma, activity that precipitated this, sinus congestion, or runny nose. Denies any chest pain, shortness of breath, abdominal pain, dysuria , or any additional complaints. She has been eating and drinking well up until today. She did become nauseated with 2 episodes of emesis over this afternoon that relieved some of the headache complaints. Currently the headache is rated a 7 out of 10. Patient denies being . She has no additional PMH. Current meds: ibuprofen and vitamins. SH: none. Denies smoking, alcohol, and drugs. 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 History: ASCUS on PAP smear, positive HPV - Infectious Disease History Infectious Disease History: Reports: Chicken Pox, Human Papilloma Virus (HPV) - Past Surgical History Musculoskeletal Surgical History: Reports: Other (See Below) Other Musculoskeletal Surgeries/Procedures:: right arm fracture age 5 Social & Family History - Family History Family Medical History: Noncontributory - Tobacco Use Smoking Status *Q: Never Smoker - Caffeine Use Caffeine Use: Reports: Coffee, Tea - Recreational Drug Use Recreational Drug Use: No - Living Situation & Occupation Living situation: Reports: , with Spouse, with Family (1 child) Occupation: Unemployed ED ROS GENERAL - Review of Systems Review Of Systems: ROS reveals no pertinent complaints other than HPI. - Physical Exam Exam: See Below Exam Limited By: No Limitations General Appearance: Alert, WD/WN, Mild Distress, Other (sitting in a dark room ) Eye Exam: Bilateral Eye: EOMI, Normal Inspection, Nystagmus (none noted), Vision Changes (none noted) Ears: Normal External Exam, Normal Canal, Hearing Grossly Normal, Normal TMs Nose: Normal Inspection Throat/Mouth: Normal Inspection, Normal Oropharynx, Normal Voice, No Airway Compromise Head Exam: Atraumatic, Normocephalic Neck: Normal Inspection, Supple, Non-Tender, Full Range of Motion. No: Lymphadenopathy (L), Lymphadenopathy (R) Respiratory/Chest: No Respiratory Distress, Lungs Clear, Normal Breath Sounds, No Accessory Muscle Use, Chest Non-Tender Cardiovascular: Normal Peripheral Pulses, Regular Rate, Rhythm, No Murmur GI/Abdominal: Normal Bowel Sounds, Soft, Non-Tender, No Organomegaly, No Distention Neuro Exam (Abbreviated): Alert, Oriented, CN II-XII Intact, Normal Cognition, Normal Gait, No Motor/Sensory Deficits, Sensory/Motor Deficit, Other (No weakness discrepancies to the upper/lower extremities. Finger to nose and rapid alternating movements are intact. Gait was normal.) Back Exam: Normal Inspection Extremities: Normal Inspection, Normal Range of Motion, Non-Tender, No Pedal Edema Psychiatric: Normal Affect, Normal Mood Skin Exam: Warm, Dry, Intact, Normal Color Course - Vital Signs Last Recorded V/S: Last Vital Signs Temp 96.9 F 09/14/18 18:31 Pulse 51 L 09/14/18 18:31 Resp 18 09/14/18 18:31 BP 114/74 09/14/18 18:31 Pulse Ox 100 09/14/18 18:31 - Orders/Labs/Meds Meds: Medications Discontinued Medications Generic Name Dose Route Start Last Admin Trade Name Freq PRN Reason Stop Dose Admin Diphenhydramine HCl 50 mg 09/14/18 19:09 09/14/18 19:32 Benadryl IM 09/14/18 19:10 50 mg ONETIME ONE Administration Haloperidol Lactate 5 mg 09/14/18 19:09 09/14/18 19:31 Haldol IM 09/14/18 19:10 5 mg ONETIME ONE Administration Ondansetron HCl 4 mg 09/14/18 19:10 09/14/18 19:32 Zofran Odt PO 09/14/18 19:11 4 mg ONETIME ONE Administration - Re-Assessments/Exams Free Text/Narrative Re-Assessment/Exam: Patient has a prior history of headaches as such. Headache today was gradual onset similar pattern to previous episodes brought on by his stress and menstrual cycle. There is a family history of similar headaches between her sister and mother. Patient states she has a migraine and notes a pattern does fit migraine but also has a tension type headache pattern as well. We discussed treatment options. Patient is aware narcotics is not a option. Ordered haldol 5mg IM, zofran 4mg ODT, and benadryl 50mg IM. Patient has already taken ibuprofen 600mg prior to arrival. 09/14/18 19:52 Patient's headache has resolved. She is feeling much better. She is ready be discharged home. Return precautions were discussed with the patient. She had no further questions or concerns. Departure - Departure Time of Disposition: 19:53 Disposition: Home, Self-Care 01 Condition: Good Clinical Impression: Migraine Qualifiers: Migraine type: periodic headache syndrome Intractability: not intractable Qualified Code(s): G43.C0 - Periodic headache syndromes in child or adult, not intractable - Discharge Information Instructions: Migraine Headache, [id number] Referrals: Mariella Wayne NP [Primary Care Provider] - Forms: ED Department Discharge Additional Instructions: Please go home and find a dark room to sleep in. Push the fluids. Follow-up with PCP in the next 3-5 days for reevaluation and discuss further treatment options for migraines. Refrain from any alcohol use. Do not drive this evening since receiving a sedative medication. Please return back to the ED if you develop any new or worsening symptoms.
== END 2018-09-14 20:15 | disposition home or self-care (01) ==
LOC: JD.ED 18:22
DX: G43.C0 Periodic headache syndromes in child or adult, not intractable (principal); Z79.899 Other long term (current) drug therapy
CPT/HCPCS: 96372; 99283; A9270; J1200; J1630; 99284

== ENCOUNTER 2020-05-07 08:31 | Inpatient (IN) | payer BC ==
[2020-05-07] MEDS ORDERED: Nalbuphine 10 MG/1 ML Vial IVPUSH PRN (09:03)
[2020-05-07] MEDS ORDERED: Ondansetron 4 MG/2 ML SDV IVPUSH PRN (09:03)
[2020-05-07] MEDS ORDERED: Sodium Chloride 0.9% 10 ML Syringe FLUSH PRN (09:03)
[2020-05-07] MEDS ORDERED: Oxytocin/Lactated Ringers 10 UNIT/1,000 ML BAG IV SCH ×2 (09:15)
[2020-05-07] MEDS ORDERED: Lactated Ringers 1,000 ML IV SCH (09:15)
--- NOTE | 2020-05-07 12:43 | PCM.LDHP ---
L&D History of Present Illness - General Date of Service: 05/07/20 Admit Problem/Dx: Patient Status Order with Admit Dx/Problem 05/07/20 08:43 Patient Status [ADT] Routine 05/07/20 09:04 Patient Status [ADT] Routine Admission Diagnosis/Problem Admission Diagnosis/Problem 05/07/20 12:35 Hoda is a 24-year-old three 1011 female who was admitted on the a.m. of 05/07/2020 at 39-4/7 weeks gestational age with an CARLIE of 05/10/2020 in active labor with advanced cervical dilation. She began having contractions during the course of the night, was admitted and found to be 6 cm dilated with bulging bag cabello. Source of Information: Patient History Limitations: Reports: No Limitations - History of Present Illness Introduction:: Hoda is a 24-year-old three 1011 female who was admitted on the a.m. of 05/07/2020 at 39-4/7 weeks gestational age with an CARLIE of 05/10/2020 in active labor with advanced cervical dilation. She began having contractions during the course of the night, was admitted and found to be 6 cm dilated with bulging bag cabello. She was found to be marcus p.o. every 3 to 5 minutes. Moderate intensity. Tolerating the labor very well. Reported good activity. 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 Patient had menarche at age 12. Cycles q. 28 days and regular. No control at the time of conception. Her last menstrual period was 08/01/2019 but ultrasound done on 09/29/2019 at 8-0/7 weeks places her CARLIE at 05/10/2020. Patient's previous obstetric history includes a term on 11/19/2016 at 40-5/7 weeks gestational age after 20 hours of labor7 pound 11 ounce male born via NSVDepidural was used. [facility] at [facility]. Child's name is Calvin. Patient also had a miscarriage at 6 weeks gestational age on 08/10/2018 with spontaneous passage of tissue. Past obstetric history indicates no abnormal Pap smears or STIs in the past. course: Patient was seen early at 8 weeks 0 days at which time ultrasound was done. From thereon she was seen on a regular basis by Dr. Key. She made good fundal height growth. She had normal vital signs throughout the course. Her weight gain has been from 131 pounds at first visit 162.8 pounds for 31.8 pound increase. Patient has anemia reported in the second trimester was started on iron and vitamin C. Her she is be negative blood type and had RhoGam at the end of second trimester. She is group B strep negative. She declined flu and Tdap vaccinations. Her 1 hour GTT was elevated at 152 mg/dL but her 3-hour GTT was normal. She has no history of MRSA. Laboratory testing in shows blood to be being negative. Antibody screen is negative. Hemoglobin at first visit was 11.5 g/dL and platelets are 328,000. She is rubella immune. RPR is nonreactive. Urine culture was negative. Hepatitis B surface antigen and HIV assays were both negative as were her chlamydia and gonorrhea tests. Second trimester labs showed a hemoglobin which was 10.0 g/dL. At this time she was started on iron therapy and vitamin C therapy. Platelets are 313,000. 1 hour GTT was 152 which was abnormal. She underwent a 3-hour GTT showing a fasting blood sugar of 88. A 1 hour glucose was 154. A 2-hour glucose was 136. And a 3-hour glucose was 115. Her antibody screen was negative and she was given RhoGam at that time on 02/16/2020. Hemoglobin and platelets on 04/12/2020 and third trimester were 10.9 g/dL and 297,000. RPR on 02/16/2020 was nonreactive. Her group B strep screen was negative. Allergies: None Medications: 1. vitamins 1 daily 2. Ferrous sulfate 1 p.o. daily 3. Vitamin C recommended. Past medical history: 1. 2017 2. Miscarriage 2019 Past surgical history: Unremarkable Family history: Mother and father are alive and well with the exception of mother has hypertension and is on medications. She has 3 sisters who are alive and well. Her maternal grandmother is alive but has diabetes adult onset type. Maternal grandfather is alive with some kidney disorder. Paternal grandmother and paternal grandfather both secondary to causes unknown. Social history: Patient is . is Jairo. They live in [place]. She is a [id number] mom. He has his own [employer] business. She does not use any significant muscle alcohol, drugs or tobacco. 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: , Other (See Below) Other OB/BYN History: ASCUS on PAP smear, positive HPV - Infectious Disease History Infectious Disease History: Reports: Chicken Pox, Human Papilloma Virus (HPV) - Past Surgical History Musculoskeletal Surgical History: Reports: Other (See Below) Other Musculoskeletal Surgeries/Procedures:: right arm fracture age 5 Social & Family History - Family History Family Medical History: No Pertinent Family History - Tobacco Use Tobacco Use Status *Q: Never Tobacco User Second Hand Smoke Exposure: No - Caffeine Use Caffeine Use: Reports: Coffee, Tea - Recreational Drug Use Recreational Drug Use: No - Living Situation & Occupation Living situation: Reports: , with Spouse, with Family (1 child) Occupation: Unemployed H&P Review of Systems - Review of Systems: Review Of Systems: See Below L&D Exam - Exam Exam: See Below - Vital Signs Vital Signs: Last Vital Signs Temp 36.8 C 05/07/20 08:49 Pulse Resp 18 05/07/20 08:49 BP 120/79 05/07/20 08:49 Pulse Ox 100 05/07/20 08:49 Weight: 73.482 kg - Patient Data Lab Results Last 24 hrs: Laboratory Results - last 24 hr 05/07/20 05/07/20 Range/Units 09:10 09:15 WBC 12.88 H (3.98-10.04) K/mm3 RBC 3.64 L (3.98-5.22) M/mm3 Hgb 11.2 (11.2-15.7) gm/dl Hct 33.4 L (34.1-44.9) % MCV 91.8 (79.4-94.8) fl MCH 30.8 (25.6-32.2) pg MCHC 33.5 (32.2-35.5) g/dl RDW Std Deviation 46.8 H (36.4-46.3) fL Plt Count 242 (182-369) K/mm3 MPV 10.4 (9.4-12.3) fl Neut % (Auto) 78.1 H (34.0-71.1) % Lymph % (Auto) 15.1 L (19.3-51.7) % [place] % (Auto) 6.3 (4.7-12.5) % Eos % (Auto) 0.2 L (0.7-5.8) Baso % (Auto) 0.1 (0.1-1.2) % Neut # (Auto) 10.06 H (1.56-6.13) K/mm3 Lymph # (Auto) 1.95 (1.18-3.74) K/mm3 [place] # (Auto) 0.81 H (0.24-0.36) K/mm3 Eos # (Auto) 0.02 L (0.04-0.36) K/mm3 Baso # (Auto) 0.01 (0.01-0.08) K/mm3 Manual Slide Review Normal smear SARS-CoV-2 RNA (SREE) Negative (NEGATIVE) Result Diagrams: 05/07/20 09:15 Problem List Initiated/Reviewed/Updated: Yes Orders Last 24hrs: Active Orders 24 hr Category Date Time Status Patient Status [ADT] Routine ADT 05/07/20 09:04 Active Activity as Tolerated [RC] PFP Care 05/07/20 09:04 Active Communication Order [RC] ASDIRECTED Care 05/07/20 09:04 Active Heart Tones [RC] ASDIRECTED Care 05/07/20 09:04 Active Non Stress Test [RC] PER UNIT ROUTINE Care 05/07/20 08:43 Active Notify Provider [RC] PFP Care 05/07/20 09:04 Active Notify Provider [RC] PRN Care 05/07/20 09:04 Active Peripheral IV Care [RC] . DIRECTED Care 05/07/20 09:04 Active Pump Management, Intrathecal [RC] ASDIRECTED Care 05/07/20 09:04 Active Vital Signs [RC] PER UNIT ROUTINE Care 05/07/20 08:43 Active Regular Diet [DIET] Diet 05/07/20 Breakfast Active RAPID PLASMA REAGIN,RPR [CHEM] Routine Lab 05/07/20 09:15 Received Lactated Ringers [Ringers, Lactated] 1,000 ml Med 05/07/20 09:15 Active IV ASDIRECTED Nalbuphine [Nubain] Med 05/07/20 09:03 Active 10 mg IVPUSH Q2H PRN Ondansetron [Zofran] Med 05/07/20 09:03 Active 4 mg IVPUSH Q4H PRN Oxytocin/Lactated Ringers [Pitocin in LR 10 Units/1,000 Med 05/07/20 09:15 Active ML] 10 unit in 1,000 ml IV .CONTINUOUS Oxytocin/Lactated Ringers [Pitocin in LR 10 Units/1,000 Med 05/07/20 09:15 Active ML] 10 unit in 1,000 ml IV TITRATE Sodium Chloride 0.9% [Saline Flush] Med 05/07/20 09:03 Active 10 ml FLUSH ASDIRECTED PRN Electronic Heart Tones Ext w TOCO [WOMSER] Oth 05/07/20 09:04 Ordered Routine Electronic Heart Tones Internal [WOMSER] Per Unit Oth 05/07/20 09:04 Ordered Routine Peripheral IV Insertion Adult [OM.PC] Routine Oth 05/07/20 09:04 Ordered Resuscitation Status Routine Resus Stat 05/07/20 08:43 Ordered Medication Orders Lactated Ringer's (Ringers, Lactated) 1,000 mls @ 100 mls/hr IV ASDIRECTED GOLDEN Last Admin: 05/07/20 09:15 Dose: 100 mls/hr Documented by: JOHN Oxytocin/Lactated Ringer's (Pitocin In Lr 10 Units/1,000 Ml) 10 unit in 1,000 mls @ 12 mls/hr IV TITRATE GOLDEN; Protocol Oxytocin/Lactated Ringer's (Pitocin In Lr 10 Units/1,000 Ml) 10 unit in 1,000 mls @ 500 mls/hr IV .CONTINUOUS GOLDEN Nalbuphine HCl (Nubain) 10 mg IVPUSH Q2H PRN PRN Reason: Pain Last Admin: 05/07/20 12:09 Dose: 10 mg Documented by: ACACIA Ondansetron HCl (Zofran) 4 mg IVPUSH Q4H PRN PRN Reason: Nausea/Vomiting Sodium Chloride (Saline Flush) 10 ml FLUSH ASDIRECTED PRN PRN Reason: Keep Vein Open Assessment/Plan Comment:: 1Cami Drummond is a 24-year-old three 1011 female who was admitted on the a.m. of 05/07/2020 at 39-4/7 weeks gestational age with an CARLIE of 05/10/2020 in active labor with advanced cervical dilation. She began having contractions during the course of the night, was admitted and found to be 6 cm dilated with bulging bag cabello. 2. Group B strep screen was negative. 3. Patient plans to do natural labor if possible 4. Patient plans to breast-feed. 5. Patient declined flu shot and Tdap. Plan: 1. Routine labor care. Anticipate . 2. Patient has been assessed of the different types of analgesia in labor 3. Plans to breast-feed. Support breast-feeding plan.
--- NOTE | 2020-05-07 14:30 | PCM.SN.2 ---
- Free Text/Narrative Note: Hoda is a 24-year-old three 1011 female who was admitted on the a.m. of 05/07/2020 at 39-4/7 weeks gestational age with an CARLIE of 05/10/2020 in active labor with advanced cervical dilation. She began having contractions during the course of the night, was admitted and found to be 6 cm dilated with bulging bag cabello. She progressed well in labor and continuously. She declined artificial rupture membranes to enhance her labor. She progressed to complete cervical dilation at approximately 1345 hrs on 05/07/2020. Labor analgesia was with Nubain 5 mg IV x1 dose. At 1402 hrs. patient delivered a viable, germain, female with Apgars of 8 and 9, a length of 20 inches, A weight of 3070 g (6 pounds 12 ounces) and a direct occiput anterior position after rotation from a direct occiput posterior position. The baby was placed on mom's abdomen and nose and mouth were bulb suction. The baby was dried with warm blanket. The umbilical cord was allowed to pulsate for approximately 2 to 3 minutes and then was clamped x2 and cut by the baby's father Jairo. Pitocin was increased to 500 cc an hour to facilitate increase in uterine tone and decrease likelihood of bleeding. The placenta delivered at 1406 hrs. in a [place] presentation, appeared intact and complete and was discarded per patient desire. There were 3 blood vessels in the umbilical cord. Cord blood was obtained prior to delivery of the placenta. Perineum and vaginal orifice was evaluated as was the vagina and no significant lacerations were noted. There were some superficial abrasions which were not bleeding, nor did they disrupt the anatomic architecture, therefore were not sutured. The estimated blood loss was 100 cc. Patient plans to breast-feed. Condition: Good
[2020-05-07] MEDS ORDERED: Witch Hazel Medicated Pads 40/Jar TOP PRN (14:36)
[2020-05-07] MEDS ORDERED: Benzocaine/Menthol 20%-0.5% Spray 56 GM Canister TOP PRN (14:36)
[2020-05-07] MEDS ORDERED: Docusate Sodium 100 MG Cap PO PRN (14:36)
[2020-05-07] MEDS ORDERED: Acetaminophen 325 MG Tab PO PRN (14:36)
[2020-05-07] MEDS: Ibuprofen 600 MG Tab PO PRN (17:25)
[2020-05-08] MEDS: Ibuprofen 600 MG Tab PO PRN (00:27)
[2020-05-08] MEDS ORDERED: Prenatal Multivitamin with Calcium/Folic Acid/Iron Tab PO SCH (09:00)
[2020-05-08 11:45] VITALS: BP 101/51; PULSE 63
--- NOTE | 2020-05-08 12:35 | PCM.DCSUM1 ---
Discharge Summary - Hospital Course Free Text/Narrative:: Hoda is a 24-year-old three 1011 female who was admitted on the a.m. of 05/07/2020 at 39-4/7 weeks gestational age with an CARLIE of 05/10/2020 in active labor with advanced cervical dilation. She began having contractions during the course of the night, was admitted and found to be 6 cm dilated with bulging bag cabello. She progressed well in labor and continuously. She declined artificial rupture membranes to enhance her labor. She progressed to complete cervical dilation at approximately 1345 hrs on 05/07/2020. Labor analgesia was with Nubain 5 mg IV x1 dose. At 1402 hrs. patient delivered a viable, [place], female with Apgars of 8 and 9, a length of 20 inches, A weight of 3070 g (6 pounds 12 ounces) and a direct occiput anterior position after rotation from a direct occiput posterior position. The baby was placed on mom's abdomen and nose and mouth were bulb suction. The baby was dried with warm blanket. The umbilical cord was allowed to pulsate for approximately 2 to 3 minutes and then was clamped x2 and cut by the baby's father Jairo. Pitocin was increased to 500 cc an hour to facilitate increase in uterine tone and decrease likelihood of bleeding. The placenta delivered at 1406 hrs. in a Gusman presentation, appeared intact and complete and was discarded per patient desire. There were 3 blood vessels in the umbilical cord. Cord blood was obtained prior to delivery of the placenta. Perineum and vaginal orifice was evaluated as was the vagina and no significant lacerations were noted. There were some superficial abrasions which were not bleeding, nor did they disrupt the anatomic architecture, therefore were not sutured. The estimated blood loss was 100 cc. Patient plans to breast-feed. patient has done well. She has minimal lochia, is voiding well, nursing without problems and ambulating without concerns. She is desiring discharge home. Condition: Good - Discharge Data Discharge Date: 05/08/20 Discharge Disposition: Home, Self-Care Condition: Good - Referral to Home Health Primary Care Physician: Mando Watson MD - Patient Instructions Diet: Regular Diet as Tolerated (Nursing diet with increased calories and calcium as recommended) Activity: As Tolerated (No intercourse or tampons until bleeding resolves) Driving: May Drive Today Showering/Bathing: May Shower Showering/Bathing, Other: May take a bath Notify Provider of: Fever, Increased Pain, Swelling and Redness, Nausea and/or Vomiting - Discharge Plan Home Medications: Home Meds Ascorbic Acid [Vitamin C] 1,000 mg PO DAILY 05/07/20 [History] Pnv No.95/Ferrous Fum/Folic AC [ Tablet] 1 each PO DAILY 05/07/20 [History] Acetaminophen [Tylenol] 650 mg PO Q4H PRN tablet 05/08/20 [Rx] Ibuprofen [Motrin] 600 mg PO Q4H PRN tablet 05/08/20 [Rx] - Discharge Summary/Plan Comment DC Time >30 min.: Yes Discharge Summary/Plan Comment: Discharge instructions: 1. Discharge home 2. Diet, activity and follow-up discussed with patient. Recommend nursing diet with increased calories and calcium. 3. Precautions given concern increased pain, bleeding, temperature, signs/symptoms of DVT/PE. 4. Medications per home medication was printed, discussed with and given to the patient. 5. Return to clinic-Dr. Key[facility] as scheduled with him already in 23 weeks. Diagnosis: Term -delivered Condition: Good - Patient Data Vitals - Most Recent: Last Vital Signs Temp 36.6 C 05/08/20 08:52 Pulse 63 05/08/20 08:52 Resp 16 05/08/20 08:52 BP 101/51 L 05/08/20 08:52 Pulse Ox 95 05/08/20 08:52 Weight - Most Recent: 73.482 kg I&O - Last 24 hours: Intake & Output 05/07/20 05/08/20 05/08/20 22:59 06:59 14:59 Intake Total 180 120 Balance 180 120 Lab Results - Last 24 hrs: Laboratory Results - last 24 hr 05/07/20 Range/Units 09:15 RPR Non-reactive (NONREACTIVE) Med Orders - Current: Current Medications Acetaminophen (Tylenol) 650 mg PO Q4H PRN PRN Reason: mild pain or fever Benzocaine/Menthol (Dermoplast Pain Relief [place]) 0 gm TOP ASDIRECTED PRN PRN Reason: Perineal Comfort Measure Last Admin: 05/07/20 17:26 Dose: 1 spray Documented by: Docusate Sodium (Colace) 100 mg PO BID PRN PRN Reason: Constipation Ibuprofen (Motrin) 600 mg PO Q4H PRN PRN Reason: Mild pain or fever Last Admin: 05/08/20 00:27 Dose: 600 mg Documented by: Delmi Multivit/[place]/Iron/Folic Ac ( Plus Iron) 1 each PO DAILY GOLDEN Last Admin: 05/08/20 09:50 Dose: 1 each [facility]: [facility] 1 pad TOP ASDIRECTED PRN PRN Reason: Perineal Comfort Measure Last Admin: 05/07/20 17:26 Dose: 1 pad Documented by: Discontinued Medications Lactated Ringer's (Ringers, Lactated) 1,000 mls @ 100 mls/hr IV ASDIRECTED GOLDEN Last Admin: 05/07/20 09:15 Dose: 100 mls/hr Documented by: Oxytocin/Lactated Ringer's (Pitocin In Lr 10 Units/1,000 Ml) 10 unit in 1,000 mls @ 12 mls/hr IV TITRATE GOLDEN; Protocol Last Admin: 05/07/20 13:30 Dose: 1 munits/min, 6 mls/hr Documented by: Oxytocin/Lactated Ringer's (Pitocin In Lr 10 Units/1,000 Ml) 10 unit in 1,000 mls @ 500 mls/hr IV .CONTINUOUS GOLDEN Nalbuphine HCl (Nubain) 10 mg IVPUSH Q2H PRN PRN Reason: Pain Last Admin: 05/07/20 12:09 Dose: 10 mg Documented by: Ondansetron HCl (Zofran) 4 mg IVPUSH Q4H PRN PRN Reason: Nausea/Vomiting Sodium Chloride (Saline Flush) 10 ml FLUSH ASDIRECTED PRN PRN Reason: Keep Vein Open
== END 2020-05-08 15:30 | disposition home or self-care (01) | DRG 560 ==
LOC: JD.OBCHECK 08:31 → JD.OB 09:04 → OBSVTOIN 14:02 → JD.OB 14:02
PROVIDERS: ADMIT Obstetrics & Gynecology; ATTEND Obstetrics & Gynecology
PROC: 10E0XZZ Delivery of Products of Conception, External Approach (ICD-10-PCS; principal; 2020-05-07)
DX: O80 Encounter for full-term uncomplicated delivery (principal); Z3A.39 39 weeks gestation of pregnancy; Z37.0 Single live birth; Z20.822 Contact with and (suspected) exposure to COVID-19
CPT/HCPCS: 36415; 59025; 59409; 85025; 86592; A9270-GY; J2300; J2590; J7120; U0002